=== PATIENT | female | born 1990 | race Caucasian/White ===

== ENCOUNTER 2019-04-11 21:05 | Emergency (ER) | payer OTHER ==
--- OUTSIDE RECORDS SUMMARY | 2019-04-11 21:12 | XMS REPORT | Continuity of Care Document ---
:1990 External Reference #:[id number] Author Name Yesenia Duke MD (transmitted by agent of provider Faustina Ambriz) Address [address] [facility], [place] [address] Care Team Providers Name Role Phone Marley Ruth MD - Family Medicine Care Team Information Outfitter [place] [phone] Problems Description No Information Available Social History Type Date Description Comments Sex Unknown ETOH Use Occasionally consumes alcohol Tobacco Use Start: Unknown Patient has never smoked Smoking Status Reviewed: 04/01/19 Patient has never smoked Allergies, Adverse Reactions, Alerts Active Allergies Reaction Severity Comments Date Sulfamethoxazole / Trimethoprim 04/01/2019 Augmentin 04/01/2019 Medications Active Medications SIG Qnty Indications Ordering Provider Date Diclofenac Sodium take 1 by mouth 20tabs M54.2 Yesenia Duke MD 04/01/2019 75mg twice a day as Tablets DR needed for pain Fluconazole Marley Porras MD 150mg Tablets Nuvaring Marley Porras MD 0.12-0.015mg/24HR Ring Immunizations Description No Information Available Vital Signs Date Vital Result Comment 04/01/2019 10:29am Height 65 inches 5'5" Weight 140.00 lb Heart Rate 62 /min BP Systolic 110 mmHg BP Diastolic 62 mmHg Body Temperature 98.8 F Pain Level 4 BMI (Body Mass Index) 23.3 kg/m2 Results Description No Information Available Procedures Description No Information Available Medical Devices Description No Information Available Encounters Description No Information Available Assessments Date Code Description Provider 04/01/2019 M54.2 Cervicalgia Yesenia Duke MD 04/01/2019 M25.512 Pain in left shoulder Yesenia Duke MD 04/01/2019 M25.511 Pain in right shoulder Yesenia Duke MD Plan of Treatment 04/01/2019 - Yesenia Duke, MDM54.2 CervicalgiaNew Medication:Diclofenac Sodium 75 mg - take 1 by mouth twice a day as needed for painNew Therapy:Physical TherapyFollow up:Follow up: 6 weeks if cont shoulder pain [facility] up [facility] apptM25.512 Pain in left vrgcglbuX21.511 Pain in right shoulder Functional Status Description No Information Available Mental Status Description No Information Available Referrals Refer to Dr Reason for Referral Status Appt John Shah MD cervicalgia Created [address] [place] [address] [phone]
--- NOTE | 2019-04-11 21:27 | UC ---
Throat Pain/Nasal Kermit HPI - HPI Summary HPI Summary: 28 y/o female presents to the urgent care c/o sore throat, body aches, nasal congestion w/ clear nasal discharge, dry cough for the past 3 days. Pt report pain w/ swallowing is 5/10 and she has had subjective low grade fever since last night. She has been taking Tylenol PO to alleviate symptoms. Last dose taken was around 1800PM. She noticed a discrete white spot in the pharynx. Pt reports she saw Orthopedic DR and was Dx w/ neck spasm. Pt denies neck pain, SOB, wheezing, abdominal pain, GLASGOW, dizziness N/V/D. - History of Current Complaint Chief Complaint: UCRespiratory Stated Complaint: COLD/FLU SYMPTOMS Time Seen by Provider: 04/11/19 21:26 Hx Obtained From: Patient Hx Last Menstrual Period: 03/26/2019 ?: No Onset/Duration: Gradual Onset, Lasting Days - 3 days, Still Present, Worse Since - yesterday w/ subjective fever Severity: Moderate Pain Intensity: 5 - sore throat Pain Scale Used: 0-10 Numeric Cough: None Associated Signs & Symptoms: Positive: Dysphagia, Nasal Discharge - clear, Fever , Other - body aches - Epiglottits Risk Factors Epiglottis Risk Factors: Negative - Allergies/Home Medications Allergies/Adverse Reactions: Allergies Allergy/AdvReac Type Severity Reaction Status Date / Time amoxicillin [From Augmentin] Allergy Hives Verified 04/11/19 21:21 clavulanic acid Allergy Hives Verified 04/11/19 21:21 [From Augmentin] isopropyl alcohol Allergy Hives Verified 04/11/19 21:21 seasonal Allergy Congestion Uncoded 04/11/19 21:21 PMH/Surg Hx/FS Hx/Imm Hx Previously Healthy: Yes - Pt denies PMHX - Surgical History Surgical History: Yes Surgery Procedure, Year, and Place: [place]. - Family History Known Family History: Positive: None - Pt denies FMHX - Social History Occupation: Employed Full-time Lives: With Family Alcohol Use: Occasionally Substance Use Type: None Smoking Status (MU): Never Smoked Tobacco - Immunization History Most Recent Influenza Vaccination: NOT IN Vaccination Up to Date: Yes Review of Systems All Other Systems Reviewed And Are Negative: Yes Constitutional: Positive: Fever, Chills, Other - body ahces Skin: Positive: Negative Eyes: Positive: Negative ENT: Positive: Sore Throat, Nasal Discharge - clear, Sinus Congestion Respiratory: Positive: Negative Cardiovascular: Positive: Negative Gastrointestinal: Positive: Negative Genitourinary: Positive: Negative Motor: Positive: Negative Neurovascular: Positive: Negative Musculoskeletal: Positive: Myalgia Neurological: Positive: Headache Psychological: Positive: Negative Is Patient Immunocompromised?: No Physical Exam - Summary Physical Exam Summary: VITAL SIGNS: Reviewed. GENERAL: Patient is a well developed and nourished female who is sitting comfortable in the examining table. Patient is not in any acute respiratory distress. HEAD AND FACE: No signs of trauma. No ecchymosis, hematomas or skull depressions. No sinus tenderness. EYES: PERRLA, EOMI x 2, No injected conjunctiva, no nystagmus. No photophobia. EARS: Hearing grossly intact. Ear canals and tympanic membranes are within normal limits. MOUTH: Positive pharynx with erythema, no exudates, mild palatal petechiae. No B/L tonsillar enlargement with no exudate. Uvula in midline. NECK: Supple, trachea is midline, Positive anterior cervical lymphadenopathy, no JVD, no carotid bruit, no c-spine tenderness, neck with full ROM. No meningeal signs, no Kernig's or brudzinskis signs. CHEST: Symmetric, no tenderness at palpation LUNGS: Clear to auscultation bilaterally. No wheezing or crackles. CVS: Regular rate and rhythm, S1 and S2 present, no murmurs or gallops appreciated. ABDOMEN: Soft, non-tender. No signs of distention. No rebound no guarding, and no masses palpated. Bowel sounds are normal. EXTREMITIES: FROM in all major joints, no edema, no cyanosis or clubbing. NEURO: Alert and oriented x 3. No acute neurological deficits. Speech is normal and follows commands. SKIN: Dry and warm Triage Information Reviewed: Yes Vital Signs: Initial Vital Signs Temp 97.8 F 04/11/19 21:17 Pulse 57 04/11/19 21:17 Resp 18 04/11/19 21:17 BP 105/60 04/11/19 21:17 Pulse Ox 100 04/11/19 21:17 Throat Pain/Nasal Course/Dx - Course Course Of Treatment: 28 y/o female presents to the urgent care c/o sore throat, body aches, nasal congestion w/ clear nasal discharge, dry cough for the past 3 days. Pt report pain w/ swallowing is 5/10 and she has had subjective low grade fever since last night. She has been taking Tylenol PO to alleviate symptoms. Last dose taken was around 1800PM. She noticed a discrete white spot in the pharynx. Pt reports she saw Orthopedic DR and was Dx w/ neck spasm. Pt denies neck pain, SOB, wheezing, abdominal pain, GLASGOW, dizziness N/V/D. Hx obtained. Pt w/ a viral syndrome on examination. Rapid strep ordered, result: negative.Influenza A&B ordered: result: Negative. Pt advised to trake ibuprofen PO to alleviates symptoms. Advised on hand washing and wear a mask to avoid spreading. Pt advised to rest, increase fluid intake, eat well and avoid strenuous exercise. If symptoms do not improve or worsen advised to return to the urgent care or f/ u with her PCP for further evaluation and treatment. D/C instructions explained. Pt understood and agreed - Differential Dx/Diagnosis Differential Diagnosis/HQI/PQRI: Laryngitis, Mononucleosis, Otitis Media, Pharyngitis, Sinusitis, Tonsillitis, URI Provider Diagnosis: Acute viral syndrome Discharge ED - Sign-Out/Discharge Documenting (check all that apply): Patient Departure - d/C home All imaging exams completed and their final reports reviewed: No Studies - Discharge Plan Condition: Stable Disposition: HOME Patient Education Materials: Viral Syndrome (ED) Referrals: Marley Kearney MD [Primary Care Provider] - 3 Days Additional Instructions: 1-Please take ibuprofen PO q6-8hrs prn as instructed after meals to alleviate pain and swelling. Increase fluid intake, eat well, rest and avoid strenuous exercise 2-If symptoms do not improve or worsen please return to the urgent care or f/u with your PCP for further evaluation and treatment. - Billing Disposition and Condition Condition: STABLE Disposition: Home - Attestation Statements Provider Attestation: Per institutional requirements, I have reviewed the chart, however, I was not consulted specifically or made aware of this patient by the midlevel provider. I did not personally evaluate, interact with , or disposition this patient.
[2019-04-11 21:51] LABS: Influenza A Molecular NEGATIVE (Negative); Influenza B Molecular NEGATIVE (Negative)
[2019-04-11 21:58] VITALS: BP 105/60
== END 2019-04-11 22:06 | disposition home or self-care (01) ==
LOC: UCEAST 21:05
DX: B34.9 Viral infection, unspecified (principal)
CPT/HCPCS: 87651; 99211; G0463